=== PATIENT | female | born 1965 | race Caucasian/White ===

== ENCOUNTER 2024-12-02 10:53 | Inpatient (IN) | payer MEDICAID ==
[~2024-12-02] VITALS: Ht 165.1 cm; Wt 90.7 kg
--- NOTE | 2024-12-02 11:13 | ELECTROCARDIOGRAPH REPORT ---
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
[2024-12-02] MEDS: amiodarone/D5 360MG/200ML BAG 200 ML IV SCH ×2 (11:16→22:16)
[2024-12-02 11:32] LABS: MEAN PLATELET VOLUME 10.1 FL (7.4-10.4); RED CELL DISTRIBUTION WIDTH 19.1 % (11.5-14.5)
[2024-12-02 12:01] LABS: CREATININE 0.78 MG/DL (0.40-0.90); LACTATE DEHYDROGENASE 115 U/L (81-234); PHOSPHORUS 3.4 MG/DL (2.3-4.5); PRO BRAIN NATRIURETIC PEPTIDE 4386 PG/ML (0-125); TOTAL CARBON DIOXIDE 28.2 MMOL/L (24-32); eCRCL 71 ML/MIN; eGFR 75 ML/MIN
[2024-12-02 12:09] LABS: PLATELET ESTIMATE NORMAL
[2024-12-02 12:10] LABS: ELLIPTOCYTES FEW
[2024-12-02 12:19] LABS: APTT 26 SECONDS (22-32); INR 1.1 INR
[2024-12-02] MEDS: morphine 4 MG/ML inj SYRINge IV ONE (15:58)
[2024-12-02] MEDS ORDERED: OMEP40CA21 PO (16:30)
[2024-12-02] MEDS ORDERED: APIX5TAB3 PO (16:39)
[2024-12-02] MEDS ORDERED: LOP12.5T PO (16:39)
[2024-12-02] MEDS ORDERED: METH-797 PO (16:39)
[2024-12-02] MEDS ORDERED: MOME13HF11 INH (16:39)
[2024-12-02] MEDS ORDERED: OLME5TAB32 PO (16:39)
[2024-12-02] MEDS ORDERED: ALBU8HFA INH (16:39)
--- NOTE | 2024-12-02 16:41 | Physician Documentation ---
History of Present Illness ~ General Chief Complaint: Rash Stated Complaint: RASH Time Seen by MD: 10:59 Primary Medical Doctor: NONE Mode of Arrival: EMS History of Present Illness Initial Comments This is a 59-year-old female who was transferred from the outside facility for evaluation and management of septic presentation in atrial fibrillation with a rapid ventricular response. The source of sepsis was unclear at the outside facility, the source of AFib was not established, but patient was started on amiodarone and presented on amiodarone drip. During my interview patient notifies me that she actually went to [facility] for evaluation of diffuse painful and pruritic rash that has been present for the last three weeks, gradually spreading. It appears that has been going to her back, and then spread bilateral upper and lower extremities, torso. The rash has been began developing bullae. The easily slough off upon drying. No palliating or aggravating factors. No obvious trigger. She has been seen by [facility] and told that this is related to medication and started on antibiotics. She also has been seen with a rash while visiting [facility] about a week ago during the . She is not certain of what they did for hurt there. At the time of my examination she denies any fever, chills, chest pain, difficulty breathing, abdominal pain. Extensive record review was performed. There is an ED provider note from a clinic in [place]. This note states that this is a 59-year-old female that presents to the emergency department with the complaints of a rash. Patient is from [place] and traveled to [place] today. She states some Thursday three days ago her neurologist Noted a rash on her back and told her to follow-up with her primary care doctor. The patient followed up with her primary care doctor yesterday and they started her on doxycycline and Claritin. The patient states that the rash had gotten progressively worse and is now all over her stomach, back, arms, and legs. She states that starting a few dots on her face. She says rash is painful and itchy. She states that her primary care doctor did a biopsy of the rash yesterday with the pathology report isn't back yet. She states that she is scheduled to have a kyphoplasty back surgery on December 23. She has a history of AFib with a RVR, asthma, hypotension, to vertebral fractures of her back. The patient states that she drinks alcohol daily somewhat between 10 and 15 drinks a night to help her sleep. She states the last time she went without alcohol was when she was hospitalized for her compression fracture for three days in the middle of October. She states that she has been never has been drawn seizures. There physical exam notes some purple dot on her upper inner lip. This skin exam notes patient has a significant erythematous maculopapular rash that has started to coalesce into large blanchable patches. With a in these patches they are small circumoral lesions that are more widened collar then the surrounding rash. These patches of most predominantly on the anterior and posterior torso, buttocks and thighs. The patient does have a large patch on her left anterior ankle where her sock and shoe has been quitting pressure. On patient's left thigh there is a small pinpoint pustules.. Laboratory workup showed mild leukocytosis of 13.7, lactic acid of 1.3, metabolic panel shows slightly elevated bilirubin. ESR was 81, procalcitonin was negative. Fibrinogen was normal at 404. I The outside facility was concerned about Todd Mike syndrome. She was given Decadron and ceftriaxone. Patient was discussed with the time with the [facility] in [facility]. They did not believe it was a Todd Mike syndrome. They felt it was erythema multiforme either related to mycoplasma or HSV. Patient was signed out to another clinician and it is not clear what was the out, but. Record review me from [facility] was also performed. There note states 59-year-old female has a rash for the last two weeks but worse over the last week. She was seen in hospital in [facility] and was transferred to [place] because they thought she might have Todd Mike syndrome but apparently that was ruled out. Doxycycline seems to be making it worse. Currently not on antibiotics. Rashes becoming more painful. She has not had any humerus or vomiting." At the outside facility patient was noted to be tachycardic. There skin exam notes hold there is a macular convalescing erythematous violaceous rash covering trunk and extremities. No skin sloughing. Tenderness to touch. Laboratory workup at the outside facility notable for leukocytosis of 15.6 with a 93% neutrophils. Lactic acidosis 2.1. INR of 1.5. Metabolic panel showed normal renal function, mild transaminitis. The patient was noted to be in the AFib with a RVR with a elevated lactic acid. She received IV clindamycin, fluids. She was given Benadryl. She was started on amiodarone. That has a note, hospitalist. He did history and physical. Evidently the family wanted to be transferred. The hospitalist as [facility] that is also recommended to get her transferred out. Medication Reconciliation Allergies: Coded Allergies: No Known Allergies (Unverified , 12/02/24) Scheduled Apixaban (Eliquis), 1 TAB PO Q12H, (Reported) Methocarbamol (Methocarbamol), 1 TAB PO Q8H, (Reported) Metoprolol Tartrate (Lopressor tablet), 1 TAB PO Q12H, (Reported) Mometasone/Formoterol (Dulera 200 Mcg/5 Mcg Inhaler), 2 PUFFS INH Q12H, (Reported) Olmesartan Medoxomil* (Benicar*), 4 TAB PO DAILY, (Reported) Omeprazole (Prilosec), 0.5 CAP PO BID, (Reported) Scheduled PRN albuterol inhaler (Pro-Air Inhaler), 2 PUFFS INH Q4HPRN PRN for wheezing, (Reported) Review of Systems ROS 10 point review of systems was performed and unless noted above in HPI is negative for acute process/complaint. Physical Exam Physical Exam Vital Signs: Temperature: 98.1, Source: Oral, Heart Rate: 107, Respiratory Rate : 18, BP: 155/89, Pulse Oximetry: 95, Weight: 90.730 Oxygen Flow Rate: 0 Physical Exam GENERAL: Awake, alert, oriented, GCS 15, no apparent distress, non-toxic appearing, answers questions, follows commands appropriately. HEENT: Atraumatic, normocephalic, pupils equal, extraocular muscles intact, sclerae anicteric, mucus membranes moist, oropharynx is clear, no stridor. NECK: supple, full active range of motion, trachea midline, no thyromegaly, no lymphadenopathy, no JVD. CARDIOVASCULAR: Tachycardic and irregularly irregular rate/rhythm, no murmurs/gallops/rubs, Pulses are 2+ in all extremities and symmetric. Capillary refill less than 2 seconds. PULMONARY: Nonlabored, good air movement ,no respiratory distress, speaking in full sentences, clear to auscultation bilaterally, no wheezing, no ronchi, no rales, no accessory muscle use. GASTROINTESTINAL: Soft, non-tender, non-distended, normal active bowel sounds, no organomegaly, no pulsatile masses, no CVA tenderness. NEUROLOGIC: Lucid with normal mental status. Normal facial symmetry. Moves all extremities symmetrically and with purpose. No truncal ataxia. Speech is fluid without evidence of dysarthria or aphasia, no focal deficits appreciated. MUSCULOSKELETAL: There is full range of motion of all extremities. There is no joint pain or joint swelling or joint erythema. There is no muscle pain or tenderness or swelling. EXTREMITIES: warm, well-perfused, no cyanosis, no clubbing, no edema, no acute deformities. Skin: warm, dry, there is an extensive coalescent macular rash with a large patches erythematous with pale center, no violaceous changes, with the evidence of some desquamation, blanchable, tender to palpation reproducing chief complaint, pruritic, negative Nikolsky sign, no bullae. There is calor noted concerning for some some superimposed cellulitis. No crepitus. The rashes present in bilateral upper and lower extremities, abdomen and back. PSYCHIATRIC: Normal affect, normal insight, normal concentration. Progress Results/Orders Results/Orders Orders - FRANKLIN VARNER DO Culture Blood (12/02/24 11:03) Urinalysis, Cult If Indicated (12/02/24 11:03) Monitor (12/02/24 11:03) Saline Lock (12/02/24 11:03) Amiodarone/D5 360mg/200ml Bag (Nexterone (12/02/24 11:10) Completed Orders - FRANKLIN VARNER DO Electrocardiogram (12/02/24 11:03) Cbc/Diff (12/02/24 11:) CK (12/02/24 11:03) ESR (12/02/24 11:03) D-Dimer (12/02/24 11:03) Fibrinogen (12/02/24 11:03) LDH (12/02/24 11:03) C-Reactive Protein (12/02/24 11:03) PHOS (12/02/24 11:03) Pt Inr (12/02/24 11:03) PTT (12/02/24 11:03) PBNP (12/02/24 11:03) MG (12/02/24 11:03) CMP (12/02/24 11:03) Hs Troponin I W Calculations (12/02/24 11:03) Hs Troponin I W Calculations (12/02/24 13:03) Hs Troponin I W Calculations (12/02/24 14:03) Lacticsepsis (12/02/24 11:03) Procalcitonin (12/02/24 11:03) Morphine 4mg/Ml Inj. (Morphine Inj.) (12/02/24 15:35) Medications Received in ER Medications (Trade) Dose Ordered Sig/Bubba Route PRN Reason Start Time Stop Time Status Last Admin Dose Admin Amiodarone HCL/ Dextrose 200 ml @ 33 mls/hr Q6H4M IV 12/02/24 11:10 12/02/24 11:16 33 MLS/HR (morphine inj.) 4 mg ONCE ONCE IV 12/02/24 15:35 12/02/24 15:37 DC 12/02/24 15:58 4 MG Vital Signs 12/02/24 12/02/24 12/02/24 12/02/24 10:54 11:58 12:01 15:58 Temp 98.1 Pulse 128 89 Resp 19 21 18 B/P (MAP) 141/75 134/72 (92) Pulse Ox 97 98 O2 Flow Rate 0 12/02/24 16:07 Pulse 107 Resp 18 B/P (MAP) 155/89 (111) Pulse Ox 95 O2 Flow Rate 0 Laboratory Tests Test 12/02/24 11:15 12/02/24 13:06 12/02/24 14:11 White Blood Count 11.9 H Red Blood Count 4.16 L Hemoglobin 11.5 L Hematocrit 34.8 L Mean Corpuscular Volume 83.6 Mean Corpuscular Hemoglobin 27.5 Mean Corpuscular Hemoglobin Concent 32.9 L Red Cell Distribution Width 19.1 H Platelet Count 248 Mean Platelet Volume 10.1 Neutrophils (%) (Auto) 82.3 H Lymphocytes (%) (Auto) 12.6 L Monocytes (%) (Auto) 5.0 Eosinophils (%) (Auto) 0 Basophils (%) (Auto) 0.1 Neutrophils # (Auto) 9.8 H Lymphocytes # (Auto) 1.5 Monocytes # (Auto) 0.6 Eosinophils # (Auto) 0.0 Basophils # (Auto) 0.0 CBC Comment Platelet Estimate Normal Red Blood Cell Morphology Perf Basophilic Stippling Anisocytosis 2+ Elliptocytes Few Erythrocyte Sedimentation Rate 18 Prothrombin Time 11.0 INR International Normalized Ratio 1.1 Activated Partial Thromboplast Time 26 Fibrinogen 311 D-Dimer 2.48 H D-Dimer Comment Coagulation Comments Coagulation Clinical Comments Sodium Level 134 L Potassium Level 4.3 Chloride Level 100 Carbon Dioxide Level 28.2 Anion Gap 6 L Blood Urea Nitrogen 10 Creatinine 0.78 Estimated GFR/1.73 m2 75 BUN/Creatinine Ratio 12.8 Glucose Level 102 Lactic Acid Level 1.5 Calcium Level 8.7 Phosphorus Level 3.4 Magnesium Level 1.9 Total Bilirubin 0.6 Aspartate Amino Transf (AST/SGOT) 20 Alanine Aminotransferase (ALT/SGPT) 31 Alkaline Phosphatase 120 H Lactate Dehydrogenase 115 Total Creatine Kinase 16 L Troponin I High Sensitivity 10 10 10 C-Reactive Protein 4.36 H Pro-B-Type Natriuretic Peptide 4386 H Total Protein 6.7 Albumin 2.7 L Globulin 4.0 Albumin/Globulin Ratio 0.7 L Procalcitonin < 0.05 Chemistry Comments Troponin I High Sens Percent Delta 0 0 Troponin I Hi Sens Absolute Change 0 0 Microbiology Date/Time Source Procedure Growth Status 12/02/24 11:19 Blood Arm Right Blood Culture - Preliminary NEGATIVE (LESS THAN 24 HOURS) Resulted Medical Decision Making Findings Facility Status: ED [facility], [facility] process The plan was discussed with the patient, who demonstrates clear understanding of the plan and is in agreement with the plan unless otherwise noted in the chart. All questions have been answered, all concerns were addressed unless otherwise documented. I was available throughout their ED stay for frequent reassessment and questions. Differential Diagnoses (considered and possible or likely): [Pemphigus vulgaris, bullous pemphigoid, staphylococcal scalded skin, erythema multiforme, superimposed cellulitis, vasculitis, clinically and given duration of symptoms not consistent with Todd Mike syndrome/TEN, superimposed sepsis, superimposed in fib with a RVR with a without heart failure, troponin elevation, less likely pulmonary causes for AFib with a RVR. Alcohol intoxication versus alcohol withdrawal.] ??Differential Diagnoses (considered and unlikely, not requiring evaluation currently): [See above] [facility] Data Please see HPI for the following: Independent Historians and external Records Review. Historian: [Patient] Independent Historians: ?[] Medication Management: [Reviewed medication list] Social History and determinants: [Reviewed] Please see the body of the note for the following: Any independent interpretati ons of ECG, imaging studies. All vitals signs/haemodynamics, ordered tests were independently reviewed and interpreted by myself. Nursing triage complaint and vitals reviewed, additional nursing notes were reviewed as available and I agree unless otherwise noted or documented in contradiction in the chart Vital Signs: Independently reviewed Labs: Independently interpreted Imaging: Independently interpreted Old Medical Records: Independently reviewed, see HPI for relevant summary and information Pulse Oximetry: [96%] interpreted as [normal on room air] by me [Cattle Driver: Tachycardic Rate, irregularly irregular rhythm, no ectopy, AFib with a RVR. reviewed and interpreted by me] Additionally notably showing: [Hemodynamics reviewed. Her AFib with a RVR is somewhat controlled on amiodarone drip. There is no evidence of hypotension. No fever. No evidence of respiratory distress. CBC shows improvement of leukocytosis compared to the outside facility, improvement of neutrophilic predominance, it is down to 82%. Hemoglobin is mildly decreased, could be dilutional anemia versus chronic anemia. Coagulation studies were obtained. INR improved to 1.1. D-dimer is markedly elevated 2.48. Fibrinogen is normal at 311. Chemistry was obtained. She does have elevation of BNP concerning for CHF exacerbation. CRP is elevated consistent with a ongoing inflammatory process. Metabolic panel otherwise unremarkable. CK is normal decreasing suspicion for rhabdo. Troponin is negative twice. Procalcitonin is normal. Lactic acid is normal now, showing improvement of sepsis.] Tests considered but not ordered include: [Skin biopsy can be repeated on the inpatient side.] Social Determinants of Health Impact: Patient was evaluated in [facility], or [facility] [place] to healthcare due to below par ratio of patient to medical providers. [] Comorbid Conditions Impacting Present Evaluation and Care/Treatment: [Alcoholism] Management Discussions with other Healthcare Providers: [Hospitalist regarding admission] Treatment and Disposition Medication Management (Given or considered): []. See EMR for details Consideration for Hospitalization/Escalation/Deescalation of Care: Admission for inpatient management of her AFib with a RVR is necessary. ?ED Course:?[With the while the lavage other shaped presenting issue, it appears to be subacute. Clinically most likely autoimmune, vasculitis versus bullous pemphigoid, given negative Nikolsky sign, less likely pemphigus vulgaris, less likely but has been considered to be bullous impetigo. We will need to obtain, while patient is on an inpatient admission, cultures from less than medical as well as the results of biopsy from patient's PCP. I did not appreciate any mucosal lesions, I do not suspect Todd Mike syndrome. Patient is not febrile.] ?Shared decision making:?[] Code status:?FULL Please see the full Electronic Medical Record for full details of nursing documentation, medications list, other records of complete past medical history and conditions, vital signs, laboratory studies, and any radiologic study interpretations by radiologists. Portions of this note were completed using [employer] dictation software and as a result there may exist minor errors in spelling. I have reviewed elements of past family and social history and agree as included in note. Departure Disposition: 09 ADMITTED INPATIENT Impression: Primary Impression: Atrial fibrillation with rapid ventricular response Additional Impressions: Sepsis CHF exacerbation Alcohol use disorder Rash Condition: Stable Referrals: NO PRIMARY CARE PROVIDER (PCP) Signature Scribe Signature: No scribe Attestation: This note accurately reflects clinical decisions, work performed by myself, Franklin Varner, FRANKLIN GUALLPA DO Dec 02, 2024 16:41
[2024-12-02] MEDS ORDERED: VANCOMYCIN 1GM 200ML H20 (PEG) 200 ML IV ONE (17:00)
[2024-12-02] MEDS ORDERED: potassium Cl 20 mEq SR tablet PO PRN ×2 (17:20)
[2024-12-02] MEDS ORDERED: ondansetron 4mg rapidly disintigrating tab PO PRN (17:20)
[2024-12-02] MEDS ORDERED: mag hydrox/Alum hydrox/simeth 30ml oral suspension PO PRN (17:20)
[2024-12-02] MEDS ORDERED: magnesium Cl slow-release 64mg tablet PO PRN (17:20)
[2024-12-02] MEDS ORDERED: magnesium sulf-water 4G/100mL 100 ML IV PRN (17:20)
[2024-12-02] MEDS ORDERED: magnesium hydroxide 30ml (MOM) UD suspension PO PRN (17:20)
[2024-12-02] MEDS ORDERED: ondansetron/PF 4mg/2ml inj IV PRN (17:20)
[2024-12-02] MEDS ORDERED: metoprolol tartrate 1mg/ml inj IV PRN (17:20)
[2024-12-02] MEDS ORDERED: potassium Cl 40MEQ/1/2NS 520ml 520 ML IV PRN (17:20)
[2024-12-02] MEDS ORDERED: magnesium sulf-water 2g/50mL 50 ML IV PRN (17:20)
[2024-12-02] MEDS ORDERED: haloperidol lactate 5mg/ml inj IM PRN ×2 (17:20→18:00)
[2024-12-02] MEDS ORDERED: HYDROcodone/acetaminophen 5mg/325mg tablet PO PRN (17:20)
[2024-12-02] MEDS: vancomycin/NS 1 GM ADD-VANTAGE 250 ML X 1 DOSE IV ONE (17:33)
[2024-12-02] MEDS: PERFLUTREN PROTEIN-A MICROSPHR (Optison) 0.22 MG/ML 3ML VIAL IV ONE (17:34)
[2024-12-02 18:11] LABS: ETHANOL < 10 MG/DL (<10)
--- NOTE | 2024-12-02 18:15 | HISTORY AND PHYSICAL ---
History & Physical Providers to CC ~ History of Present Illness Reason for Admit\Complaint: afib rvr History of Present Illness Chari Fletcher is a 59-year-old female with a past medical history of atrial fibrillation, asthma, hypertension who was transferred from [facility] for management of with RVR and diffuse rashes of unknown etiology. Patient states rash started about 10 days ago prior to going to [place] for . Patient states rash started in her back which was initially noticed by her neurosurgeon who was managing disc disease. Since then, rashes started spreading diffusely going to her torso and extremities. Patient states rashes are warm painful and itching in quality. Patient denies prior autoimmune disorders, drug allergies, ME/CAD, CVA, DVT/PE, or GIB. Patient denies chest pain, palpitations, shortness of breath, abdominal pain, n/v/d, dysuria, fever, chills, recent illness. Patient was transferred on amiodarone drip from outside facility. Initial diagnostic findings were notable findings of sepsis, EKG indicating atrial fibrillation at a rate of 98bpm, physical assessment findings of diffuse redness and macular rashes in torso, upper/lower extremities, neck without drainage or ulceration. Patient is to be admitted for further workups and treatment. Allergies: Coded Allergies: No Known Allergies (Unverified , 12/02/24) Home Medications Home Medications Active Reported Dulera 200 Mcg/5 Mcg Inhaler (Mometasone/Formoterol) 200 Mcg-5 Mcg/Actuation Hfa.aer.ad 2 Puffs INH Q12H 30 Days Pro-Air Inhaler (Albuterol) 8.5 Gm Inhaler 2 Puffs INH Q4HPRN PRN 30 Days Methocarbamol 500 Mg Tablet 1 Tab PO Q8H 30 Days Lopressor tablet (Metoprolol Tartrate) 25 Mg Tablet 1 Tab PO Q12H 30 Days Hold for SBP below 100mm Hg Hold for Heart Rate below 60. Benicar* (Olmesartan) 5 Mg Tablet 4 Tab PO DAILY 30 Days Eliquis (Apixaban) 5 Mg Tablet 1 Tab PO Q12H 30 Days Prilosec (Omeprazole) 40 Mg Capsule 0.5 Cap PO BID 30 Days Past Medical History Past Medical History Atrial fibrillation Hypertension Asthma Vertebral fracture Alcoholism Degenerative disc disease Past Surgical History Surgical History Comment Orthopedic surgeries Past Social History Social History Comment Alcohol: 6 cans of beer 2-3 times a week Tobacco: Denies Illicit drug use: Denies Living situation: Lives at home with family ROS ROS Other than positives in HPI, all 14 review of systems are negative Exam Vitals: Vital Signs Date Time Temp Pulse Resp B/P (MAP) Pulse Ox O2 Delivery O2 Flow Rate FiO2 12/02/24 16:07 107 18 155/89 (111) 95 0 12/02/24 10:54 98.1 General: A&Ox 3, NAD HEENT: Normocephalic, PERRLA Neck: Supple, trachea midline, no JVD Chest: Clear to auscultation bilaterally Cardiovascular: IRIR Abdomen: Soft and nontender Extremities: No cyanosis/clubbing/or edema Central Nervous System: CN II-XII intact, no focal deficits Musculoskeletal: No paraspinal muscle tenderness, no muscle spasm Skin: Diffuse redness and macular rashes in torso, upper/lower extremities, neck without drainage or ulceration. Diagnostic Data Last Recorded Lab Results: 12/02/24 1115 12/02/24 1115 Diagnostic Data: Laboratory Tests Test 12/02/24 11:15 Prothrombin Time 11.0 SECONDS (9.0-12.0) INR International Normalized Ratio 1.1 INR Activated Partial Thromboplast Time 26 SECONDS (22-32) Fibrinogen 311 MG/DL (177-424) D-Dimer 2.48 MG/L FEU (0-0.50) H D-Dimer Comment Coagulation Comments Coagulation Clinical Comments Additional Plan Assessment Atrial fibrillation w/ RVR (primer boxer Dr. Gutierrez) Sepsis vs SIRS Rashes, diffuse Hypertension Hypotension Normocytic anemia -afib rate controlled on amio drip, wbc 11.9, D-dimer 2.48, lactic acid 1.5, afebrile, procal negative, Well's score 3 Plan -IVF, empirical abx, continue amiodarone drip, metoprolol tart, steroid, antihistamine, diphenhydramine, mild alcohol withdrawal protocol, thiamine, folic acid, prn bronchodilators -follow venous ultrasound, UA, CXR, blood cx, social service DVT/VTE prophylaxis: Eliquis Code status: Full code I spent a total of 35 minutes discussing Advanced Care Planning measures with the patient. Advance care planning: Discussed with patient the importance of advance care planning in case of emergent situation. We discussed various resuscitative measures/ ACP with the patient at the time of admission. Patient voiced understanding and patient has decided on a full code status. Date of Service: Dec 02, 2024 Billing Provider: DRAGAN MUNOZ Common Visit Codes: 90304-ACMCQKA INP/OBS CARE (HIGH) Secondary Visit Codes: 53070-YJLAIMXE CARE PLAN 30 MINUTES DRAGAN MUNOZ Dec 02, 2024 18:15
--- NOTE | 2024-12-02 18:59 | RADIOLOGY REPORT ---
CHEST RADIOGRAPH Indication: sepsis Technique: Single frontal view of the chest was obtained Comparison: None FINDINGS: Lines and Tubes: None Lungs: No focal consolidation. Mild interstitial prominence. Right infrahilar fullness . Pleura: No effusion. No pneumothorax. Cardiomediastinal contours: Mild cardiomegaly. Bones: No acute osseous abnormality. IMPRESSION: Mild cardiomegaly with mild pulmonary vascular congestion. Right infrahilar fullness which May represent prominent vasculature with lymphadenopathy not excluded .
[2024-12-02] MEDS ORDERED: amiodarone/D5 360MG/200ML BAG 200 ML IV SCH ×3 (19:14→19:22)
[2024-12-02] MEDS: docusate sod 100mg capsule PO SCH (19:33)
[2024-12-02] MEDS: HYDROcodone/acetaminophen 10/325mg tab PO PRN (19:36)
[2024-12-02] MEDS: normal saline 1000ml 1,000 ML IV SCH (19:39)
[2024-12-02] MEDS: piperacillin/tazo 4.5gm/100ml 100 ML IV ONE (19:39)
[2024-12-02] MEDS: K and/or MAG REPLACEMENT MC SCH (19:47)
[2024-12-02] MEDS: thiamine 100mg/ml 2ml inj. IV SCH (20:29)
[2024-12-02 20:55] VITALS: PULSE 72; RESP 14; O2SAT 97
[2024-12-02 22:37] LABS: LEUKOCYTE ESTERASE ,URINE NEGATIVE (Neg); NITRITES, URINE NEGATIVE (Neg); OCCULT BLOOD,URINE NEGATIVE (Neg)
[2024-12-02 22:40] LABS: UA COLLECTION TYPE OTHER
[2024-12-02 22:43] LABS: AMORPHOUS URATES 1+; CAL OXALATE CRYSTALS FEW /HPF (NEGATIVE); MUCUS STRANDS FEW /LPF (Neg); SQUAMOUS EPITHELIAL CELL,UR FEW /LPF (FEW)
[2024-12-02 22:52] LABS: URINE AMPHETAMINE SCREEN NEGATIVE (Neg); URINE BARBITUATE SCREEN NEGATIVE (Neg); URINE BENZODIAZEPINES SCREEN POSITIVE (Neg); URINE CANNABINOID SCREEN NEGATIVE (Neg); URINE COCAINE SCREEN NEGATIVE (Neg); URINE METHADONE SCREEN NEGATIVE (Neg); URINE OPIATE SCREEN POSITIVE (Neg); URINE PHENCYCLIDINE SCREEN NEGATIVE (Neg)
[2024-12-02 23:45] VITALS: BP 146/94; PULSE 87; RESP 19; TEMP 96.8; O2SAT 96
[2024-12-03] VITALS (18 sets, daily range): BP systolic 129–153; BP diastolic 79–120; PULSE 63–92; RESP 15–20; TEMP 97.3–97.9; O2SAT 94–99
[2024-12-03] MEDS: piperacillin/tazo 3.375gm/50ml 50 ML IV SCH (00:34)
[2024-12-03] MEDS: hydrALAZINE 20mg/ml inj. IV PRN (01:00)
[2024-12-03] MEDS ORDERED: VANCOmycin 1250MG/NS 250ml Bag 250 ML IV SCH (05:30)
[2024-12-03 06:45] LABS: MEAN PLATELET VOLUME 10.3 FL (7.4-10.4); RED CELL DISTRIBUTION WIDTH 18.8 % (11.5-14.5)
[2024-12-03 07:09] LABS: CREATININE 0.98 MG/DL (0.40-0.90); TOTAL CARBON DIOXIDE 28.6 MMOL/L (24-32); eCRCL 54 ML/MIN; eGFR 58 ML/MIN
[2024-12-03] MEDS: VANCOmycin 1250MG/NS 250ml Bag 250 ML IV SCH (07:11)
[2024-12-03] MEDS: multivitamins, therapeutics tablet PO SCH (08:10)
[2024-12-03] MEDS: diltiazem SR 60mg capsule (twice daily) PO SCH (08:10)
[2024-12-03] MEDS: folic acid 1mg/0.2ml inj IV SCH (08:11)
[2024-12-03] MEDS: ipratropium/albuterol 3ml nebule NEB PRN (08:28)
--- NOTE | 2024-12-03 09:39 | VASCULAR REPORT ---
Bilateral lower extremity venous duplex Clinical History: Pain Comparison: None Technique: Duplex Doppler evaluation of the deep venous systems of both lower extremities from the common femora l veins to the popliteal veins including color Doppler and spectral/pulsed waveform analysis was perf ormed. Findings: RIGHT SIDE: The common femoral vein demonstrates nonocclusive thrombus. There is compressibility/patency of the great saphenous vein at the proximal thigh. The femoral vein demonstrates nonocclusive thrombus. The deep femoral vein demonstrates appropriate compressibility and waveform variability. The popliteal vein demonstrates nonocclusive thrombus. There is normal compressibility at the tibioperoneal trunk. LEFT SIDE: The common femoral vein demonstrates appropriate compressibility and waveform variability. There is compressibility/patency of the great saphenous vein at the proximal thigh. The femoral vein demonstrates appropriate compressibility and waveform variability. The deep femoral vein demonstrates appropriate compressibility and waveform variability. The popliteal vein demonstrates appropriate compressibility and waveform variability. There is normal compressibility at the tibioperoneal trunk. Impression: No left femoropopliteal venous thrombosis. Nonocclusive subacute thrombus is present in the right common femoral vein, femoral vein and poplitea l vein.
[2024-12-03] MEDS: normal saline 500ml IV soln 500 ML IV ONE (10:00)
--- NOTE | 2024-12-03 11:36 | PROGRESS NOTE ---
Daily Progress Note Providers to CC ~ Antibiotic Timeout Antibiotic Ordered?: No Subjective No acute events overnight. Patient examined at bedside. No new complaints not in acute distress. Patient denies chest pain, sob, palpitations, abdominal pain, n/v/d. Afib rvr rate controlled, amiodarone drip discontinued and started oral amio, metoprolol, diltiazem. Tele afib in 50s. Labs slightly uptrended Cr. Venous US shows subacute thrombus in right common femoral vein, femoral vein and popliteal vein. CTPA shows small PE in left lower lung; heparin started, home Eliquis held. Patient denies hx of DVT or PE. Objective Vital Signs Date Time Temp Pulse Resp B/P (MAP) Pulse Ox O2 Delivery O2 Flow Rate FiO2 12/03/24 11:12 97.7 80 18 129/79 (96) 98 12/03/24 10:17 Room Air 0.0 21 Result Diagram: 12/03/2418 12/03/24 0618 Physical Exam General: Generalized weakness, A&Ox 3, NAD HEENT: Normocephalic, PERRLA Neck: Supple, trachea midline, no JVD Chest: Clear to auscultation bilaterally Cardiovascular: IRIR GI: Soft and nontender Extremities: No cyanosis/clubbing/or edema CYBER SYSTEMS ADMINISTRATOR: CN II-XII intact, no focal deficits Musculoskeletal: No paraspinal muscle tenderness, no muscle spasm Skin: Warm and intact Coagulation Studies Laboratory Tests Test 12/02/24 11:15 Prothrombin Time 11.0 SECONDS (9.0-12.0) INR International Normalized Ratio 1.1 INR Activated Partial Thromboplast Time 26 SECONDS (22-32) Fibrinogen 311 MG/DL (177-424) D-Dimer 2.48 MG/L FEU (0-0.50) H D-Dimer Comment Coagulation Comments Coagulation Clinical Comments Problem\Assessment\Plan Assessment Atrial fibrillation w/ RVR (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) Pulmonary embolism, 1st episode- POA DVT, 1st episode- POA Hypercoagulable state SIRS 2/2 above Rashes, diffuse Hypertension Hypotension Normocytic anemia Asthma, not in acute exacerbation -afib rate controlled on amio drip, wbc 11.9, D-dimer 2.48, lactic acid 1.5, afebrile, procal negative, Well's score 3 -12/03: venous US shows subacute thrombus in right common femoral vein, femoral vein and popliteal vein; CTPA shows small PE in left lower lung; heparin started, home Eliquis held -Afib rvr rate controlled, tele afib in 50s, UA negative, CXR negative pneumonia Plan -IVF, empirical abx, continue amiodarone drip, metoprolol tart, steroid, antihistamine, diphenhydramine, mild alcohol withdrawal protocol, thiamine, folic acid, prn bronchodilators -follow venous ultrasound, UA, CXR, blood cx, social service -12/03: started oral amio, metoprolol, diltiazem. Tele afib in 50s. Start heparin drip for PE&DVT Code status: Full code Date of Service: Dec 03, 2024 Billing Provider: DRAGAN MUNOZ Common Visit Codes: 11545-OOCYAQMSPQ INP/OBS CARE(HIGH) DRAGAN MUNOZ Dec 03, 2024 11:36
--- NOTE | 2024-12-03 11:53 | RADIOLOGY REPORT ---
Indication: PE Technique: CT axial images of the chest are obtained with intravenous contrast per CT angiogram prot ocol. Coronal and sagittal reformats were obtained. Radiation Dose Information: CTDI volume is 24.4 mGy. Dose-length product is 935 mGy*cm Comparison: None FINDINGS: Filling defect within the left lower lobe segmental/subsegmental branches. Trachea patent. No pneumothorax. Bilateral atelectasis. No supraclavicular or axillary lymphadenopathy. Soft tissue edema / anasarca. Indeterminate left adrenal nodule measuring 12 mm. Cholelithiasis. There is moderate thoracic degenerative disc disease. Old T10 compression deformity with 40% loss hei ght status post vertebral plasty. Age indeterminate T11 and T12 fractures with 70% loss height, espec ially concerning for acute fracture at T12. Age-indeterminate L1 and L2 compression deformities with 20-30% loss height. IMPRESSION: Left lower lobe segmental/subsegmental pulmonary emboli. Cholelithiasis. 12 mm left adrenal nodule which can be further characterized with MRI of the abdomen adrenal mass pro tocol in the nonemergent setting. T11, T12 compression fractures with 70% loss height. The T12 fractures especially concerning for acut e component. Recommend MRI thoracic spine to evaluate. Age indeterminate L1, L2 compression deformities with 20-30% loss height. Recommend MRI lumbar spine to evaluate. Chronic T10 compression deformity as described. Other findings as described Critical Result: Pulmonary embolism and thoracic/lumbar spine findings Findings discussed with DRAGAN MUNOZ at 12/03/2024 011:52 AM, and acknowledged receipt and understanding of the findings. ..
[2024-12-03] MEDS ORDERED: heparin 25,000 UNIT/250ml bag 250 ML IV PRN (12:10)
[2024-12-03] MEDS ORDERED: MESSAGE TO NURSING IV ONE (12:20)
[2024-12-03] MEDS: heparin 10,000 units/1 ML INJ IV ONE (12:24)
[2024-12-03] MEDS: MESSAGE TO NURSING IV ONE ×2 (12:29→20:35)
[2024-12-03] MEDS: HEPARIN DRIP DVT/PE -**PHARMACIST TO DOSE IV ONE (12:29)
[2024-12-03] MEDS ORDERED: OMEP20CA16 PO (14:12)
[2024-12-03] MEDS: ipratropium 0.5 MG/2.5ML nebule IH PRN (20:27)
[2024-12-03] MEDS: methylPREDNISolone sod succ/PF 40mg inj. IV SCH (22:22)
--- NOTE | 2024-12-03 23:42 | CONSULTATION ---
DATE OF CONSULTATION: 12/03/2024 DICTATING PHYSICIAN: Jez Carson MD REASON FOR CONSULTATION: I am seeing the patient at the request of David Styles for evaluation of diffuse rash with concern for infection. HISTORY OF PRESENT ILLNESS: The patient is a 59-year-old female with multiple medical issues, who is a very poor historian and states that she has been battling a diffuse rash over the past several weeks. She was able to tell me that she underwent surgery with Dr. Francois at her right foot about a month ago. She states that she was given an antibiotic after that surgery. She states that her rash started up when she was almost done with that antibiotic. She has been seen by other providers as well at [facility]. I was told that she was transferred here for atrial fibrillation with a rapid ventricular rate. She is rate controlled at this time. She has been placed on Zosyn and she is receiving high-dose corticosteroids. She is very frustrated with her situation. She states that she needs a spine procedure in about 3 weeks at the beginning of December. With regards to the rash, she does describe some tiny pustules in some areas. She otherwise has large areas of redness involving the trunk and extremities. She states that these areas have been uncomfortable in the past. She has been peeling in multiple areas. PAST MEDICAL HISTORY: Asthma, hypertension, GERD, atrial fibrillation. PAST SURGICAL HISTORY: Orthopedic surgeries including recent right foot surgery. ALLERGIES: She currently has none listed, but I am going to put doxycycline down. MEDICATIONS: * Zosyn. * Solu-Medrol 60 mg every 6 hours. * Folate. * Thiamine. * Diltiazem. * Amiodarone. * Metoprolol. * Loratadine. * Multivitamin. * Apixaban. * Colace. FAMILY HISTORY: Noncontributory. SOCIAL HISTORY: She lives down in [place]. I believe she is a . She does drink beer. She does not smoke. PHYSICAL EXAMINATION: VITAL SIGNS: She is afebrile with stable vital signs. GENERAL: She is a fairly pleasant middle-aged female, sitting up in bed in no acute distress. HEENT: Sclerae anicteric. Mouth is clear. Her face is spared from her rash. NECK: Supple. LUNGS: Clear to auscultation bilaterally. HEART: Irregularly irregular with a normal rate. ABDOMEN: Obese, soft and nontender. EXTREMITIES: No edema. SKIN: She does have a significant rash involving the extremities as well as the trunk. She has large patches of erythema. A few areas demonstrate tiny pustules. She has demonstrated desquamation of the epidermis. The rash definitely does not look infected. LABORATORY DATA: Her white blood cell count is 12,000, hemoglobin is in the 11 range, platelets are in the 200,000 range. Creatinine is around 1. Procalcitonin is negative. Blood cultures are pending. IMPRESSION: * Diffuse rash, likely due to medication. This does not have the appearance of an infection and I am highly suspicious of a drug rash. This does seem to coincide with use of doxycycline that was prescribed after her right foot surgery. She does not report any other new medications around that time. She has been receiving corticosteroids and she seems to be stable at this time. * Atrial fibrillation with rapid ventricular rate. Her rate is under better control at this point. * Recent right foot surgery. * Back pain, awaiting procedure in early December. PLAN: Zosyn will be discontinued. I am going to decrease her steroids to 40 mg twice daily. This will need to be slowly tapered. Doxycycline has been listed as an allergy. Hopefully, she will demonstrate improvement in the coming weeks, and I thank you for allowing me to participate in her care. Jez Carson MD TID: [id number] RECEIPT: [id number] TAE/TERRY
[2024-12-04] MEDS: MESSAGE TO NURSING IV ONE (00:35)
[2024-12-04 02:00] VITALS: BP 139/75; PULSE 76; RESP 18; TEMP 97.4; O2SAT 96
[2024-12-04 03:59] LABS: MEAN PLATELET VOLUME 10.3 FL (7.4-10.4); RED CELL DISTRIBUTION WIDTH 19.3 % (11.5-14.5)
[2024-12-04 04:14] LABS: CREATININE 0.95 MG/DL (0.40-0.90); TOTAL CARBON DIOXIDE 28.0 MMOL/L (24-32); eCRCL 56 ML/MIN; eGFR 60 ML/MIN
[2024-12-04] MEDS ORDERED: heparin 25,000 UNIT/250ml bag 250 ML IV PRN (04:50)
[2024-12-04] MEDS: heparin 10,000 units/1 ML INJ IV PRN (04:54)
[2024-12-04] MEDS: heparin 5,000 units/ml 10ML vial IV ONE (05:17)
[2024-12-04 06:00] VITALS: BP 152/90; PULSE 74; RESP 18; TEMP 97.2; O2SAT 98
[2024-12-04] MEDS ORDERED: thiamine tablet PO (07:39)
[2024-12-04] MEDS ORDERED: LORA10TA7 PO (07:39)
[2024-12-04] MEDS ORDERED: FOLI1TAB27 PO (07:39)
[2024-12-04] MEDS ORDERED: PRED10TA23 PO (07:39)
[2024-12-04] MEDS ORDERED: DIPH-423 PO (07:39)
[2024-12-04 08:00] VITALS: RESP 18; O2SAT 98
[2024-12-04] MEDS ORDERED: PERFLUTREN PROTEIN-A MICROSPHR (Optison) 0.22 MG/ML 3ML VIAL IV ONE (10:40)
[2024-12-04 10:41] VITALS: BP 166/85; PULSE 96; RESP 18; TEMP 97.2; O2SAT 100
[2024-12-04] MEDS ORDERED: LOSA50TA64 PO (10:44)
[2024-12-04] MEDS ORDERED: LOP25T PO (10:44)
[2024-12-04] MEDS ORDERED: FURO20TA4 PO (13:27)
[2024-12-04] MEDS ORDERED: AMI200T PO ×2 (13:57→14:03)
[2024-12-04 14:15] VITALS: BP 144/54; PULSE 75
[2024-12-04] MEDS ORDERED: APIX5TAB3 PO ×2 (14:17→15:34)
--- NOTE | 2024-12-04 15:10 | DISCHARGE SUMMARY ---
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 Apixaban (Eliquis) 5 Mg Tablet 10 MG PO BID for 30 Days, #74 TAB Take 2 tablets by mouth twice daily x 7 days, then take 1 tablet by mouth twice daily thereafter. Diphenhydramine Hcl (Benadryl) 25 Mg Capsule 25 MG PO Q6H PRN ITCHING for 30 Days, #120 CAP Furosemide (Furosemide) 20 Mg Tablet 1 TAB PO DAILY for 30 Days, #30 TAB 0 Refills Prednisone (Prednisone) 10 Mg Tablet 0 PO DAILY, #42 TAB Take 4 tabs daily x4 days, then 3 daily x4 days 2 daily x4 days 1 daily x4 days 1/2 daily x4 days then STOP Folic Acid* (Folic Acid*) Y Tab 1 MG PO DAILY for 90 Days, #90 TAB Loratadine (Loratadine) 10 Mg Tablet 10 MG PO DAILY for 30 Days, #30 TAB Losartan Potassium (Losartan Potassium) 50 Mg Tablet 50 MG PO DAILY for 90 Days, #90 TAB Metoprolol Tartrate* (Lopressor tablet*) 25 Mg Tablet 50 MG PO Q12H for 30 Days, #120 TAB Hold for SBP below 100mm Hg Hold for Heart Rate below 60. [thiamine tablet] () 100 MG TABLET 100 MG PO DAILY for 90 Days, #90 Continued Medications: albuterol inhaler (Pro-Air Inhaler) 8.5 Gm Inhaler 2 PUFFS INH Q4HPRN PRN for wheezing for 30 Days, #18 GM Methocarbamol (Methocarbamol) 500 Mg Tablet 1 TAB PO Q8H for 30 Days, #90 TAB 0 Refills Mometasone/Formoterol (Dulera 200 Mcg/5 Mcg Inhaler) 200 Mcg-5 Mcg/Actuation Hfa.aer.ad 2 PUFFS INH Q12H for 30 Days, #13 GM 0 Refills Omeprazole (Omeprazole) 20 Mg Capsule.dr 1 CAP PO BID for 30 Days, #30 CAP 0 Refills Discontinued Medications: Apixaban (Eliquis) 5 Mg Tablet 1 TAB PO Q12H for 30 Days, #60 TAB 0 Refills Metoprolol Tartrate (Lopressor tablet) 25 Mg Tablet 1 TAB PO Q12H for 30 Days, #60 TAB Hold for SBP below 100mm Hg Hold for Heart Rate below 60. Olmesartan Medoxomil* (Benicar*) 5 Mg Tablet 4 TAB PO DAILY for 30 Days, #30 TAB Discharge Summary: History of Present Illness Chari Fletcher is a 59-year-old female with a past medical history of atrial fibrillation, asthma, hypertension who was transferred from [facility] for management of with RVR and diffuse rashes of unknown etiology. Patient states rash started about 10 days ago prior to going to [place] for . Patient states rash started in her back which was initially noticed by her neurosurgeon who was managing disc disease. Since then, rashes started spreading diffusely going to her torso and extremities. Patient states rashes are warm painful and itching in quality. Patient denies prior autoimmune disorders, drug allergies, OK/CAD, CVA, DVT/PE, or GIB. Patient denies chest pain, palpitations, shortness of breath, abdominal pain, n/v/d, dysuria, fever, chills, recent illness. Patient was transferred on amiodarone drip from outside facility. Patient is to be admitted for further workups and treatment. Hospital Course Initial diagnostic findings were notable findings of sepsis, EKG indicating atrial fibrillation at a rate of 98bpm, physical assessment findings of diffuse redness and macular rashes in torso, upper/lower extremities, neck without drainage or ulceration. Further workups were notable for venous ultrasound revealing subacute thrombus in right common femoral vein, femoral vein and popliteal vein, CTPA revealing left lower lobe pulmonary emboli, elevated pBNP. TTE revealed LVEF of 45-50%, RVSP 47 mmHg, moderate biatrial enlargement, without significant valvular heart disease. Pertinent negative findings were no hypoxia, normal lactic acid, negative procal negative troponin series, unremarkable TSH/T4, unremarkable serum lytes, afebrile. Patient was treated with steroid, antihistamine, GDMT for heart failure, amiodarone drip which was transitioned to oral metoprolol tartrate and amiodarone once rate was controlled. Patient was also treated with heparin drip which was later transitioned to PE/DVT dose Eliquis. Case was consulted with ID Dr. Carson who suggested rashes to be allergic reaction to doxycycline that patient took after a foot surgery as onset of rashes coincides with doxycycline usage. Patient did not experience further complications throughout the entire hospital stay and remained clinically and hemodynamically stable. Patient was seen and examined on the day of discharge. On day of discharge, vss, tele afib in 80s, and labs unremarkable. Telemetry remained afib in 80s. All labs, diagnostic workups, discharge plan discussed with patient in details during visit before discharge. All questions and concerns answered to the best of my professional knowledge. Patient is to be discharged with HH and to follow-up with PCP, her registered nurse teacher Dr. Gutierrez, and customer response representative for hypercoagulopathy workup within 2 weeks. Physical Exam General: A&Ox 3, NAD HEENT: Normocephalic, PERRLA Neck: Supple, trachea midline, no JVD Chest: Clear to auscultation bilaterally Cardiovascular: IRIR GI: Soft and nontender Extremities: No cyanosis/clubbing/or edema HOT DIP PLATER: CN II-XII intact, no focal deficits Musculoskeletal: No paraspinal muscle tenderness, no muscle spasm Skin: Warm and intact, diffuses rashes in torso, b/l upper and lower extremities *Problems/Diagnosis: (1) Atrial fibrillation with rapid ventricular response Status: Acute (2) DVT (deep venous thrombosis) (3) Pulmonary embolism Total Time Spent on D/C: > 30 Minutes Date of Service: Dec 04, 2024 Billing Provider: DRAGAN MUNOZ Common Visit Codes: 81505-BWI/OBS DISCH DAY >30min DRAGAN MUNOZ Dec 04, 2024 15:10
[2024-12-04] MEDS ORDERED: AMIO200T67 PO (15:34)
--- NOTE | 2024-12-05 08:57 | CARDIOLOGY REPORT ---
APPROVED REPORT EXAM: Comprehensive 2D, Doppler, and color-flow Echocardiogram. Patient Location: [address] Blood Pressure: 166/85 mmHg Heart Rate: 82-104 bpm Rhythm: Atrial Fibrillation Indications Arrhythmia Atrial Fibrillation with RVR Hx of A-Fib Asthma Hypertension Sepsis Crematorium Operator: Dr. Brenda MD [facility] Previous echo: None 2D Dimensions RVDd 3.9 cm LA Diam4.9 cm RA Minor5.2 cmLVOT Diameter 1.99 (1.8-2.4cm) Ao Asc Diam.3.27 cmCO 4.4 L/min M-Mode Dimensions RVDd 3.15 (2.1-3.2cm) Left Atrium(MM) 4.50 (2.5-4.0cm) IVSd 1.43 (0.7-1.1cm) LVDd 4.98 (4.0-5.6cm) Aortic Root 3.00 (2.2-3.7cm) PWd 1.39 (0.7-1.1cm) Aortic Cusp Exc 2.31 (1.5-2.0cm) IVSs 1.36 cm LVDs 3.67 (2.0-3.8cm) FS (%) 25 % PWs 1.39 cm ESV(Teich) 49.9 ml LVEF(%) 49 (>50%) Aortic Valve AoV Peak Phil. 106.7 cm/s AoV VTI 20.8 cm AO Peak GR. 4.6 mmHg AO Mean GR. 2 mmHg LVOT VTI 19.45 cm LVOT Peak Phil. 92.2 cm/s WILMER(VTI)/BSA 2.91 cm2/m2 WILMER (VTI) 2.91 cm2 AI P 1/2 Time 400 ms Mitral Valve MV E Velocity 127.0 cm/s MV Peak Gr. 7 mmHg MV Mean Gr. 3 mmHg MV PHT 64 ms MVA (PHT) 3.44 cm2 MV APpp945.6 cm/s MV VMean75.5 cm/sMVA VTI2.71 cm2 MV VTI22.4 cm Pulmonary Valve RVOT VTI 27.5 cm Tricuspid Valve TR P. Velocity 282 cm/s RAP ESTIMATE 10 mmHg TR Peak Gr. 32 mmHg RVSP 42 mmHg LEFT VENTRICLE Normal LV size wth mildly reduced function. Septal segments appear hypokinetic. Mild concentric hyper trophy. Overall LVEF is 45-50%. RIGHT VENTRICLE Right ventricle is moderate to severely dilated with reduced function. Estimated PA systolic pressure is 47 mmHg. ATRIA Moderate biatrial enlargement. AORTIC VALVE Trileaflet AV appears sclerotic without stenosis. Mild to moderate insufficiency. MITRAL VALVE Mild MV annular thickening without stenosis. Mild regurgitation. TRICUSPID VALVE TV appears structurally normal with mild regurgitation. PULMONIC VALVE Normal PV without stenosis, physiologic, mild insufficiency. GREAT VESSELS The aortic root is normal in size. PERICARDIUM Normal pericardium. No pericardial effusion seen. Other Information Study Quality: Adequate
== END 2024-12-04 14:35 | disposition home health service (06) | DRG 720 ==
LOC: ER 10:53 → ED HOLD 17:27 → PCU 3S 23:30
PROVIDERS: ADMIT Nurse Practitioner Family; ATTEND Nurse Practitioner Family
PROC: B32T1ZZ Computerized Tomography (CT Scan) of Left Pulmonary Artery using Low Osmolar Contrast (ICD-10-PCS; principal; 2024-12-03)
PROC: B3201ZZ Computerized Tomography (CT Scan) of Thoracic Aorta using Low Osmolar Contrast (ICD-10-PCS; 2024-12-03)
PROC: B32S1ZZ Computerized Tomography (CT Scan) of Right Pulmonary Artery using Low Osmolar Contrast (ICD-10-PCS; 2024-12-03)
DX: A41.9 Sepsis, unspecified organism (principal); I26.99 Other pulmonary embolism without acute cor pulmonale; I50.33 Acute on chronic diastolic (congestive) heart failure; I82.411 Acute embolism and thrombosis of right femoral vein; D68.59 Other primary thrombophilia; I27.20 Pulmonary hypertension, unspecified; D64.9 Anemia, unspecified; I82.431 Acute embolism and thrombosis of right popliteal vein; F10.10 Alcohol abuse, uncomplicated; I11.0 Hypertensive heart disease with heart failure; I48.91 Unspecified atrial fibrillation; J45.909 Unspecified asthma, uncomplicated; L08.9 Local infection of the skin and subcutaneous tissue, unspecified; Z79.01 Long term (current) use of anticoagulants; Z79.51 Long term (current) use of inhaled steroids; K21.9 Gastro-esophageal reflux disease without esophagitis
CPT/HCPCS: 36415; 71045; 71275; 80053; 80202; 80305; 80320; 81001; 82550; 83605; 83615; 83735; 83880; 84100; 84145; 84439; 84443; 84484; 85008; 85025; 85379; 85384; 85610; 85651; 85730; 86038; 86140; 87040; 87081; 93005; 93306; 93970; 94640; 94760; 96365; 96375; 97116; 97161; 97530; 99285; A6258; G0378; J0282; J0360; J1644; J2060; J2270; J2543; J2919; J3370; J3411; J3490; J7030; J7040; Q9967